=== PATIENT | male | born 1980 | race Caucasian/White ===

== ENCOUNTER 2016-08-30 16:52 | Emergency (ER) | payer OTHER ==
[~2016-08-30] VITALS: Ht 180.3 cm; Wt 77.1 kg
[2016-08-30 17:25] VITALS: BP 134/77
== END 2016-08-30 18:16 | disposition home or self-care (01) ==
LOC: ER 16:59
DX: Z46.89 Encounter for fitting and adjustment of other specified devices (principal); F17.200 Nicotine dependence, unspecified, uncomplicated; Z59.0 Homelessness; F31.9 Bipolar disorder, unspecified; Z88.8 Allergy status to other drugs, medicaments and biological substances
CPT/HCPCS: 73130-TC; A4606; Z7610